=== PATIENT | male | born 1980 | race African-American/Black ===

== ENCOUNTER 2020-12-01 03:43 | Emergency (ER) | payer OTHER ==
[2020-12-01 04:29] LABS: AMPHETAMINES NEGATIVE (NEGATIVE); BARBITURATES NEGATIVE (NEGATIVE); ECSTASY (MDMA) NEGATIVE (NEGATIVE); MARIJUANA (THC) NEGATIVE (NEGATIVE); METHADONE NEGATIVE (NEGATIVE); OPIATES NEGATIVE (NEGATIVE); OXYCODONE NEGATIVE (NEGATIVE)
[2020-12-01 04:53] LABS: BASOPHIL 0.8 % (0-2); EOSINOPHIL 0.5 % (0-5); HCT 45.6 % (42.0-52.0); HGB 15.5 g/dl (13.2-18.0); LYMPHOCYTE 32.3 % (15-48); MCV 82.3 fL (78.0-100.0); MPV 10.3 fL (6.0-9.5); NEUTROPHIL 59.2 % (41-80); NRBC 0; PLT 258 K/uL (150-400); RBC 5.54 M/uL (4.70-6.00); RDW 13.8 % (11.5-14.0); WBC 8.5 K/uL (4.0-10.5)
[2020-12-01 05:18] LABS: ALBUMIN 3.8 g/dL (3.4-5.0); BILIRUBIN - TOTAL 0.4 mg/dL (0.2-1.0); BUN/CREAT RATIO (CALC) 10.1 RATIO; CREATININE 0.99 mg/dL (0.67-1.17); GLOBULIN (CALCULATION) 3.5 g/dL; POTASSIUM 3.4 mmol/L (3.5-5.1); TOTAL PROTEIN 7.3 g/dL (6.4-8.2)
== END 2020-12-01 10:40 | disposition left against medical advice (07) ==
LOC: FER 03:43
PROVIDERS: Emergency Medicine
DX: F19.10 Other psychoactive substance abuse, uncomplicated (principal); R45.851 Suicidal ideations; F17.210 Nicotine dependence, cigarettes, uncomplicated; Z20.822 Contact with and (suspected) exposure to COVID-19
CPT/HCPCS: 36415; 80053; 80305; 85025; G0480; J3411; J7030; U0002